=== PATIENT | female | born 1935 | race Caucasian/White ===

== ENCOUNTER 2024-09-25 19:18 | Inpatient (IN) | payer MEDICARE, SELFPAY ==
[2024-09-25] VITALS (7 sets, daily range): BP systolic 123–133; BP diastolic 70–85; PULSE 102–115; RESP 24–80; TEMP 36.4–36.6; O2SAT 79–100; BMI 17.0
--- NOTE | 2024-09-25 19:32 | XR_ITS ---
Examination: AP chest single view Technique one AP portable upright chest single view Exam date and time: September 25, 20242011 hrs. Comparison September 10, 2024 Indications: Shortness of breath today. Findings: Significant left parietal left basilar pneumonia Accentuation of bronchovascular markings Normal heart size Deviation of the trachea to the right related to enlarged left thyroid lobe Prominent osteopenia Impression: Significant left perihilar left basilar pneumonia
--- NOTE | 2024-09-25 19:32 | EDNOTE_ITS ---
ED General RME/HPI General Chief complaint: Shortness of Breath/Dyspnea Stated complaint: SOB Time Seen by Provider: 09/25/24 19:31 Arrival date/time: 09/25/24 19:18 CC: Low oxygen saturations HPI patient presents the ER via EMS from assisted care facilities [facility] where the patient is a DNR on comfort care only the daughter at bedside stated she wanted the patient brought here for assessment for if there is anything we can possibly do for her . Reported the patient has not been able to get an oxygen saturation greater than 81 to 85% on 15 L simple facemask. EMS also report the same that she is tachycardic but with a stable blood pressure. Paperwork from [facility] shows the patient has metabolic encephalopathy and she has a DNR on comfort focused treatment. Reported baseline is some interaction with people. Son who is power of deputy prosecuting attorney per his, arrives at bedside states I want her to be comfortable and not suffocate . Related Data Home Medications ?Medication ?Instructions ?Recorded ?Confirmed lisinopril 2.5 mg tablet 2.5 mg PO PRN PRN htn 09/10/24 09/10/24 Allergies Allergy/AdvReac Type Severity Reaction Status Date / Time Penicillins Allergy Unknown Rash Verified 12/15/21 18:13 Review of Systems Review of Systems ROS Unobtainable: unobtainable due to mental status Past Medical History Past Medical History CARDIAC: Positive Cardiac Disorders, Congestive Heart Failure, Valvular Heart Disease and Hypertension RESPIRATORY: Negative Chronic Obstructive Pulmonary Disease (COPD) or Asthma GENITOURINARY: Positive Renal Disease ENDOCRINE: Negative Diabetes Mellitus Type 1 or Diabetes Mellitus Type 2 HEMATOLOGIC: Negative Sickle Cell Disease Social History SMOKING STATUS: Never smoker SUBSTANCE USE: does not use ED Exam Narrative Physical exam: [General: Frail deconditioned Head normocephalic HEENT: Within acceptable limits Neck is supple nontender Chest equal chest rise nontender to palpation Respiratory: Tachypnea, right sided end expiratory crackles left side clear to auscultation CV: Rate rhythm is regular no murmurs rubs or clicks Abdomen is distended secondary to body habitus soft nontender no masses positive bowel sounds all 4 quadrants Back: No CVA tenderness no spinous process tenderness from cervical spine thoracic and lumbar spine Skin: Intact no petechiae rash induration ulceration or crepitus Extremities: Moving all extremity against resistance cap refill less than 2 seconds neurosensory intact Neuro: Awake alert oriented x3 Glascow coma 15 no focal deficits] Course Course Course Narrative: Chest x-ray shows no profound pneumonia, the patient has a wet nonmobilized co ugh. Patient's condition including a negative influenza and COVID along with a chest x-ray was discussed with the son, who states he wants a morphine drip to make his mother comfortable . Patient's case discussed with Dr. Messina, attending, who states we can start the morphine drip here, if the patient has not within 2 hours of the drip started, they will accept the patient for admission. This was discussed with the son at bedside who is agreeable with this plan. Patient was deep suctioned for moderate amount of upper airway secretions, which improved oxygen saturations. Patient continues to maintain poor inspiratory effort At 2300 the patient continues to maintain oxygen saturations of 9091% on the morphine drip. Patient's family at bedside son was informed that the patient has pneumonia and declined antibiotics stating he just wanted her to be made comfortable . Patient's case again discussed with Dr. Messina who agrees to accept the patient for admission Quality Measures none Orders Category Date Time Status Bedside COVID-19 Antigen Test NOW Care 09/25/24 19:32 Active Bedside Influenza A&B Antigen Test NOW Care 09/25/24 19:32 Completed Insert IV NOW Care 09/25/24 20:37 Active Oronasopharyngeal suction PRN Care 09/25/24 20:22 Active XR chest 1V Stat Exams 09/25/24 19:32 Completed Morphine IV Drip 100mg/100ml [Morphine Sulfate IV Drip Med 09/25/24 20:29 Discontinued 100mg/100ml] 100 ml IV Q50H Morphine Sulfate HORTICULTURAL WORKER Med 09/25/24 21:15 Discontinued See Protocol HORTICULTURAL WORKER PER ORDER Morphine Sulfate HORTICULTURAL WORKER Med 09/25/24 21:34 Active See Protocol HORTICULTURAL WORKER PER ORDER Morphine Sulfate HORTICULTURAL WORKER Med 09/25/24 21:18 Discontinued 30 mg in 30 ml .ROUTE .STK-MED Vital Signs Vital signs: Vital Signs Pulse Rate 115 H 09/25/24 19:24 Respiratory Rate 24 H 09/25/24 19:24 Blood Pressure 133/80 H 09/25/24 19:24 Pulse Oximetry (%) 79 L 09/25/24 19:24 Oxygen Delivery Method Oxy Mask 09/25/24 19:24 MDM Patient data External records reviewed:: [facility] previous records and EMS form Clinical information provided by:: patient and EMS Social determinants that could affect healthcare access:: none Patient has the following chronic illnesses:: Metabolic encephalopathy congestive heart failure CKD recurrent UTIs DNR comfort care How is presenting disease/condition affected by chronic disease/condition?: exacerbated by Evaluation data The following diagnostics were reviewed and interpreted by me:: lab results and radiology exam(s) Lab and/or radiology exams considered but not ordered:: Chest x-ray as interpreted by radiology shows left base pneumonia COVID influenza are negative Interpretation Summary: Discussed the pneumonia with the son who declines antibiotics based on her wishes for DNR DNI comfort care only. Medications Medications considered but not ordered:: None Medication administrations:: Medication Administration History Morphine Sulfate (Morphine Sulf 1 Mg/Ml Practice Representative Syringe 30 Ml) 0 mg HORTICULTURAL WORKER PER ORDER [facility]; Protocol Stop: 09/30/24 21:14 Last Admin: 09/25/24 21:49 Dose: 30 mg Documented By: XIAO Co-signed By: Discontinued Medications Morphine Sulfate (Morphine Sulfate Iv Drip 100mg/100ml) 100 mls @ 2 mls/hr IV Q50H PRN; Protocol PRN Reason: PAIN (COMFORT CARE) Stop: 09/30/24 20:28 Morphine Sulfate (Morphine Sulfate Practice Representative) Confirm Administered Dose 30 mg in 30 mls @ ud .ROUTE .STK-MED ONE Stop: 09/25/24 21:19 Last Admin: 09/25/24 21:26 Dose: Not Given Documented By: XIAO Non-Admin Reason: Duplicate Medication on eMAR Morphine Sulfate (Morphine Sulf 1 Mg/Ml Practice Representative Syringe 30 Ml) 0 mg HORTICULTURAL WORKER PER ORDER [facility]; Protocol Stop: 09/30/24 21:14 Last Admin: 09/25/24 21:51 Dose: Not Given Documented By: XIAO Non-Admin Reason: Duplicate Medication on eMAR None Consultations Consultation(s) initiated? (list below): No Diagnosis Differential Diagnosis ED Complaint MDM: Pneumonia hypoxemia sepsis Most likely diagnosis given after review of the tests above:: Pneumonia hypoxemia Admission Indicated Admission indicated?: indicated Explain why admission is indicated or not indicated:: Morphine drip end-of-life care Admission Request Was there a request for admission?: No Disposition Plan Disposition Plan: Admit Medical Decision Making Differential Diagnosis Differential Diagnosis: Pneumonia hypoxemia sepsis Discharge Plan Plan Patient Disposition: Other Care w/in Hosp (SDC/ESTHER) Disposition Comment: Declining Prescriptions/Referrals Prescriptions/Med Rec: No Action lisinopril 2.5 MG tablet 2.5 mg PO PRN PRN (Reason: htn) Referrals: Torsten (PCP)Michael MD [Primary Care Provider] - In 1 week Problem List Clinical Impression: Shortness of breath Patient/Caregiver Discharge Instructions Print Language: Yakut Stand Alone Forms: Ava Award Info., Patient Portal Info Letter PA/SKILLS TRAINER Supervising Physician PA/SKILLS TRAINER Supervising Physician: Delmar Anders ENP
--- NOTE | 2024-09-25 20:10 | PC.NURSE ---
Assume care for this 89 year old female who was BIB EMS from [facility] with chief c/o of SOB and low SP02 in the 70's. This Pt is a DNR and on comfort care. Pt SP02 at the SNF was in the 80% to 70% and that nursing staff there were unable to maintain the Pt oxygen saturation above 80%. Family at bedside reports that they only want to keep this Pt comfortable and for her to be pain free. On assessment the there crackles on auscultation to the right side of the chest with a SPO2 at 90% on oxymask at 15l. Pt is a GCS of 7. Family at bedside given update on plan of care.
[2024-09-25] MEDS: MORPHINE SULF 1 MG/ML PCA SYRINGE 30 ML PCA (21:49)
[2024-09-26] VITALS (17 sets, daily range): BP systolic 64–123; BP diastolic 42–74; PULSE 96–120; RESP 8–33; TEMP 36.3–37.1; O2SAT 80–97; BMI 17.0
--- NOTE | 2024-09-26 00:15 | ESHP_ITS ---
Documentation for date of: 09/26/24 HPI History of Present Illness History of present illness: The patient is an 89-year-old female with a past medical history significant for hypertension, chronic kidney disease stage III, a history of failure to thrive, dysphagia, and generalized weakness. She presented from [facility] of per note with comfort measures only. The patient is a DNR. The patient was brought to the emergency department by her daughter for evaluation of her hypoxia and SOB. . According to the ED sign-out, the patient has been unable to achieve an oxygen saturation greater than 81-85% on a 15 L oxygen mask. EMS also reported that the patient was tachycardic. Paperwork from [facility] indicated that the patient has metabolic encephalopathy and a DNR order, with a comfort-focused treatment plan. The patient's son, who holds power of life skills coach, was at the bedside and expressed his desire for comfort care, specifically requesting that his mother not suffer or suffocate. Previous Hospitalization: The patient was recently admitted to the hospital, with the most recent discharge date being 09/16/2024. During the previous hospitalization, the patient's mental status was deteriorating, and she was becoming progressively lethargic and weak. The patient's son, Alexandru, was in regular contact with the hospitalist team throughout the course of treatment. On 09/16/2024, a goals of care discussion was held with the family, and the prognosis was updated. The family expressed a preference to avoid further interventions such as endoscopy or PEG tube placement and instead expressed interest in pursuing hospice care. At that time, the patient's code status was changed to DNR, and the family made the decision to focus care on comfort rather than procedural interventions. The family subsequently decided to proceed with home hospice care per note. ED Course: Upon arrival in the ED, patient was hypoxic sat 79% on 15L oxy mask, tachicardic and tachipnic. CXR showed PNA . In ED SCOT Castellano had an extensive conversation with the family, including the patient?s daughter and son, Alexandru, who is the decision-maker. CXR findings was discussed with the family. The family expressed their desire to proceed with comfort care measures, no antibiotics, emphasizing that they do not want the patient to suffer or suffocate. they expressed wishes for morphine drip to make her more comfortable. Subsequently a morphine drip was initiated in ED to manage the patient's symptoms. Two hours later, the patient was reassessed, and the hospitalist team was consulted for admission under comfort care protocols. At this time, the patient?s oxygen saturation had improved slightly, reaching 93% on a 10 L nasal cannula while resting in bed while being on morphin drip. The family?s wishes were once again reviewed and confirmed. The family agreed to continue with the current management, focusing on comfort care and respecting the patient's DNR status. They wanted do not to pursue treatment for pneumonia or any other aggressive interventions, including antibiotics, and chose to continue the morphine drip. We thoroughly explained the expected course of the patient's condition, which may extend from hours to days, and clarified the role of hospice care. The family expressed understanding, and their wishes were respected. The patient was admitted to the hospital with the goal of ensuring comfort during her final days. Problem list: #AHRF 2/2PNA #PNA #Failure to thrive #Dysphagia #Left thyromegaly #Generalized weakness #Hypokalemia #Urinary tract infection #Constipation #History of CKD IIIa comfort care measures initiated. Review of Systems Review of Systems ROS Unobtainable: unobtainable due to mental status Exam Vital Signs Temp Pulse Resp BP Pulse Ox O2 Del Method O2 Flow Rate 97.8 F 102 H 25 H 131/70 H 98 Oxy Mask 10 09/25/24 21:01 09/25/24 22:00 09/25/24 22:00 09/25/24 22:00 09/25/24 22:00 09/25/24 22:00 09/25/24 22:00 Narrative Exam GENERAL: comfortable in bed, under morphine drip, AAO x0, frail female HEENT: Head AT/ NC. Mucous membranes moist. CARDIOVASCULAR: RRR.No pitting edema of bilateral LEs. RESPIRATORY: coarse rhonchi, on 10 L oxymask sat 95% GASTROINTESTINAL: Abdomen soft, non tender no palpable masses. MUSCULOSKELETAL:? No cyanosis or edema, no visible joint swelling. NEUROLOGICAL:unobtainable due to mental status Quality Measures Quality Measures none Advance care planning discussed with:: child and legal surragate Medications Home Medications and Allergies Home Medications ?Medication ?Instructions ?Recorded ?Confirmed ?Type lisinopril 2.5 mg tablet 2.5 mg PO PRN PRN htn 09/10/24 09/10/24 History Allergies Allergy/AdvReac Type Severity Reaction Status Date / Time Penicillins Allergy Unknown Rash Verified 12/15/21 18:13 Visit Medications Acetaminophen (Acetaminophen Supp 650 Mg Supp) 650 mg MD Q6HR PRN PRN Reason: [id number] Stop: 10/25/24 23:50 Artificial Tears (Artificial Tears 225 Drop/15 Ml Btl) 1 drop BOTH EYES Q4HR PRN PRN Reason: Dry eyes Stop: 10/25/24 23:50 Diphenhydramine HCl (Diphenhydramine Inj 50 Mg/Ml Vial) 25 mg IVP Q6HR PRN PRN Reason: ITCHING Stop: 10/25/24 23:50 Lorazepam (Lorazepam 2 Mg/Ml Vial) 1 mg IVP Q6HR PRN PRN Reason: ANXIETY Stop: 09/30/24 23:50 Morphine Sulfate (Morphine Sulf 1 Mg/Ml Mortgage Loan Computation Clerk Syringe 30 Ml) 0 mg HOME CARE LIAISON PER ORDER [facility]; Protocol Stop: 09/30/24 21:14 Last Admin: 09/25/24 21:49 Dose: 30 mg Morphine Sulfate (Morphine Sulf Inj 10 Mg/Ml Vial) 2 mg IVP Q30M PRN PRN Reason: PAIN Stop: 09/30/24 23:50 Ondansetron HCl (Ondansetron Inj 2 Mg/Ml Inj 2 Ml) 4 mg IV Q6H PRN; Protocol PRN Reason: NAUSEA OR VOMITING Stop: 10/25/24 23:50 Scopolamine (Scopolamine 1 Mg Tdsy) 1 mg TOP Q3D SULEMA Stop: 10/25/24 23:44 Sennosides (Senna Tablet) 2 tab PO HS SULEMA Stop: 10/26/24 20:59 Discontinued Medications Morphine Sulfate (Morphine Sulfate Iv Drip 100mg/100ml) 100 mls @ 2 mls/hr IV Q50H PRN; Protocol PRN Reason: PAIN (COMFORT CARE) Stop: 09/30/24 20:28 Morphine Sulfate (Morphine Sulf 1 Mg/Ml Mortgage Loan Computation Clerk Syringe 30 Ml) 0 mg HOME CARE LIAISON PER ORDER [facility]; Protocol Stop: 09/30/24 21:14 Last Admin: 09/25/24 21:51 Dose: Not Given Assessment & Plan Plan 89-year-old female with past medical history of hypertension, chronic kidney disease stage III, history of failure to thrive, dysphagia, generalized weakness, was admitted to the hospital for comfort care. Problem list: #AHRF 2/2PNA #PNA #Failure to thrive #Dysphagia #Left thyromegaly #Generalized weakness #Hypokalemia #Urinary tract infection #Constipation #History of CKD IIIa comfort care measures initiated. Disposition:Medsurge DVT prophylaxis: none GI prophylaxis: none Diet: npo Lines: PIV CODE STATUS:DNR Patient care was discussed with attending physician Dr. Siddharth Cardozo MD PGY-2 I have carefully reviewed this document. Due to imperfections in the voice software, there could be grammatical errors including phonetic/typographic errors. This in no way compromises the medical care the patient is receiving Attending Provider Attestation/Addendum I reviewed labs, imaging, EKG, home medications and prior available records. Face to face evaluation was performed by me. I have personally examined the patient and discussed assessment and plan with the IM team. I reviewed the resident note and agree with the plan with exceptions as below. Patient is an 89-year-old female with history of CHF and recent admission for failure to thrive and BALTAZAR who presented with a chief complaint of shortness of breath. She was found to have acute hypoxic respiratory failure in the setting of left-sided pneumonia. Acute hypoxic respiratory failure: In the setting of left-sided pneumonia. Possible component of CHF. Discussed goals of care with the family: Since the patient was on hospice care and she is symptomatic, will admit for morphine drip and inpatient hospice referral. Will continue oxygen as needed for comfort but no antibiotics or invasive measures as per family. Hospice referral to be made in the morning. Goals of care discussion/counseling: She is on comfort care measures which was initiated in the ED.
[2024-09-26] MEDS: SCOPOLAMINE 1 MG TDSY TOP (00:21)
--- NOTE | 2024-09-26 08:45 | PC.NURSE ---
Patient lying in gurney in semifowler's position, resp. even and slightly labored at 22bpm, patient admitted to hospital for comfort care, patient sons at bedside and updated on patients condition, they have no further questions at this time.
--- NOTE | 2024-09-26 09:30 | CHAP ---
Family member was with patient. Patient was asleep. I had prayer and gave words of comfort.
--- NOTE | 2024-09-26 10:52 | ESPR_ITS ---
<Statement entered by Mack Pickett MD - 09/26/24 16:50> Senior Resident Attestation: I supervised/discussed management plan with grad intern physician Dr. Daily, and was involved in the care of this patient. I personally saw and examined the patient and discussed the assessment and plan with the entire medicine team, including my attending. I agree with the assessment and plan as documented. Patient was seen and examined at the bedside in ED. Her relatives are at the bedside. Patient appears comfortable on morphine drip and oxygen via facemask. Her BP is low but stable. Patient's care was discussed with attending physician, Dr. Curran. Mack Pickett MD PGY-2. Documentation for date of: 09/26/24 Subjective Subjective Interval history: 09/26: This morning Pt. is radha tachycardic (HR 112) and hypotensive (82/53). Pt. is placed on morphine drip as per comfort measures. Pt's family is at bedside. Pt appears comfortable resting. Exam Vital Signs Temp Pulse Resp BP Pulse Ox O2 Del Method O2 Flow Rate 98.3 F 108 H 16 95/57 L 91 L Oxy Mask 15 09/26/24 08:27 09/26/24 09:00 09/26/24 09:00 09/26/24 09:00 09/26/24 09:00 09/26/24 09:00 09/26/24 09:00 Narrative Exam GENERAL: A&Ox0. Not in acute distress, laboured breathing NEURO: comatose, non verble, non responsive HEENT: Atraumatic, Normocephalic. mucous membranes dry. Eyes closed HEART:tachycardic LUNGS: crackles ABDOMEN: soft, non-distended SKIN: multiple skin changes consistent with dry skin, age spots some bruising due to skin thinning EXTREMITIES: No edema noted Quality Measures Quality Measures none Advance care planning discussed with:: child Assessment & Plan Assessment Current Active Medications: Generic Name Dose Route Start Last Admin Trade Name Freq PRN Reason Stop Dose Admin Acetaminophen 650 mg 09/25/24 23:51 Acetaminophen Supp 650 Mg Supp LA 10/25/24 23:50 Q6HR PRN [id number] Artificial Tears 1 drop 09/25/24 23:51 Artificial Tears 225 Drop/15 Ml Btl BOTH EYES 10/25/24 23:50 Q4HR PRN Dry eyes Diphenhydramine HCl 25 mg 09/25/24 23:51 Diphenhydramine Inj 50 Mg/Ml Vial IVP 10/25/24 23:50 Q6HR PRN ITCHING Lorazepam 1 mg 09/25/24 23:51 Lorazepam 2 Mg/Ml Vial IVP 09/30/24 23:50 Q6HR PRN ANXIETY Morphine Sulfate 0 mg 09/25/24 21:34 09/25/24 21:49 Morphine Sulf 1 Mg/Ml Limnologist Syringe 30 Ml PADDER 09/30/24 21:14 30 mg PER ORDER SULEMA Administration Protocol Morphine Sulfate 2 mg 09/25/24 23:51 Morphine Sulf Inj 10 Mg/Ml Vial IVP 09/30/24 23:50 Q30M PRN PAIN Ondansetron HCl 4 mg 09/25/24 23:51 Ondansetron Inj 2 Mg/Ml Inj 2 Ml IV 10/25/24 23:50 Q6H PRN NAUSEA OR VOMITING Protocol Scopolamine 1 mg 09/25/24 23:45 09/26/24 00:21 Scopolamine 1 Mg Tdsy TOP 10/25/24 23:44 1 mg Q3D SULEMA Administration Sennosides 2 tab 09/26/24 21:00 Senna Tablet PO 10/26/24 20:59 HS SULEMA Plan Ms. Beasley is an 89-year-old female with a past medical history of hypertension, congestive heart failure, and chronic kidney disease presents a history of failure to thrive, dysphagia, and generalized weakness. She presented from [facility] for evaluation of her hypoxia and SOB. On admission pt. O2 saturation were between 81-85% on 15L oxygen with tachycardia. This morning Pt.is radha tachycardic .Pt. is placed on morphine drip as per comfort measures. Family is agreeable and does not want antibiotics. As per chart review, the pt's son Alexandru has the power of regulatory attorney expressed his desire for comfort care, specifically requesting that his mother not suffer or suffocate. Plan: Continue with comfort measures as per family's wishes. Problem list: #AHRF 2/2PNA #PNA #Failure to thrive #Dysphagia #Left thyromegaly #Generalized weakness #Hypokalemia #Urinary tract infection #Constipation #History of CKD IIIa Assessment and plan discussed with my senior resident Dr. Pickett & attending physician Dr. Bina Daily (PGY-1)- Internal medicine resident Attending Provider Attestation/Addendum I, Brenda Curran DO, attest that I was physically present for the perez portions of the service and evaluated the patient with the resident and I reviewed and discussed the case with the resident and agree with the resident's findings and plans of care as documented above Patient seen and eval this a.m. Son is at bedside. Patient remains on morphine drip and appears comfortable. Continue with comfort measures at this time. All questions and concerns were addressed to family satisfaction at bedside.
--- NOTE | 2024-09-26 11:34 | PC.NURSE ---
Family at bedside and is aware patient declining 02 sats 86% on 15L oxymask and bp 72/60. Continuing comfort measures,
--- NOTE | 2024-09-26 12:05 | PC.OT ---
Dr. Pickett, made aware of patient vs declining, family aware as well.
--- NOTE | 2024-09-26 12:10 | PC.NURSE ---
Dr. Lake made aware, vs declining, family at bedside and is aware.
--- NOTE | 2024-09-26 12:37 | PC.NURSE ---
Called Dara, pharmacist informed him Morphine LAUNDRY SORTER Syringe complete, CLEM Layton from ICU will slate picker and administer to patient.
[2024-09-26] MEDS: MORPHINE SULF 1 MG/ML PCA SYRINGE 30 ML PCA (12:58)
--- NOTE | 2024-09-26 13:01 | PC.NURSE ---
Family at bedside, 02 sats 86% on 15l oxymas, bp 72/60.
--- NOTE | 2024-09-26 14:51 | PC.NURSE ---
patient 02 sats 81% family at bedside
--- NOTE | 2024-09-27 00:37 | PD.DPN ---
Documentation for date of: 09/27/24 Pronouncement Note Date and Time of Date of : 09/27/24 Time of : 00:32 PCOD Preliminary cause of : Cardiopulmonary arrest Summary Additional details: I was called to patient's bedside to pronounce that Naty Beasley, 89-year-old female, has . No spontaneous movements present. No response to verbal or tactile stimuli. Pupils mid-dilated, fixed, and unresponsive to light. Corneal reflex absent. No breath sounds appreciated over either lung james. No heart sounds auscultated over entire precordium. Patient pronounced at 12:32 AM on 09/27/2024. Confirmed and witnessed by nurse. Family was notified and condolences were given. Additional Data Confirmation of : no pulse, no respirations, no heart sounds, pupils fixed and dilated and other (No response to pain, no corneal reflex.) Family: at bedside Additional persons at bedside: other (Nurse) Attending/PCP notified?: Yes Attending physician: rBenda Curran, DO Was code activated?: No (Comfort care)
--- NOTE | 2024-09-27 00:50 | PC.NURSE ---
at 0016, receive a call from family notified staff that they assume patient has . Upon entering room, patient has no respirations, not responding to any stimuli. Called Dr. Jules Walter at 0019 to assess patient. At 0025, No pulse and BP detected. Dr. Jules Walter and Dr. Cardozo saw and assessed that patient at bedside. Called time of at [address] Aleksandr Walter.
--- NOTE | 2024-09-27 02:49 | PC.NURSE ---
Mortuary staff on floor to roller picker patient at 0214, left facility at 0225.
--- NOTE | 2024-09-27 11:11 | PD.DDS ---
Documentation for date of: 09/27/24 Summary Date and Time Date of admission: 09/25/24 23:52 Ms. Naty Beasley is an 89-year-old female with past medical history significant for hypertension, chronic kidney disease, dysphagia, enlarged thyroid, failure to thrive and generalized weakness presented to [facility] ED on 09/25/2024 from [facility] for comfort measures protocol. The patient was brought to the ED by her daughter for evaluation of her hypoxia and SOB, as per the patient's daughter and son Alexandru who has the power of family law attorney wishes for their mother not to suffer or suffocate. In the ED patient was unable to achieve oxygen saturations greater than 85% on 15 L of oxygen via oxy-mask. Patient had a DNR/DNI order with comfort focused treatment plan only. Patient was also tachycardic and tachypneic without improvement of oxygen saturation. chest x-ray showed significant left perihilar and left basilar pneumonia, CXR findings was discussed with the family. The family expressed their desire to proceed with comfort care measures, no antibiotics, emphasizing that they do not want the patient to suffer or suffocate. they expressed wishes for morphine drip to make her more comfortable. Subsequently a morphine drip was initiated in the ED to manage the patient's symptoms. The patient was admitted to the hospital with the goal of ensuring comfort during her final days, with continuing morphine drip and no other aggressive measures or antibiotic treatments. Over the course of her hospitalization patient's oxygen saturations continued to worsen, overnight team reported patient passed peacefully at 12:32 AM on 09/27/2024 confirmed and witnessed by nurse in the room. Patient's family was notified and condolences were given. End-of-life care was provided with focus on symptoms management, pain control and emotional support with family at bedside. The patient received morphine drip and oxygen via nasal cannula to ensure comfort. #comfort care #AHRF 2/2PNA #PNA #Failure to thrive #Dysphagia #Left thyromegaly #Generalized weakness #Hypokalemia #Urinary tract infection #Constipation #History of CKD IIIa Assessment and plan discussed with attending physician Dr. Bina Daily (PGY-1)- Internal medicine resident Additional Data Attending physician: Brenda uCrran, Visit Providers Provider Primary care physician: Matt Ryan MD Consults: 09/25/24 23:56 Referral Hospice Urgent Comment: Referral Registered Dietitian Urgent Comment: Discharge Plan Plan Patient Disposition: Disposition Comment: Declining Prescriptions/Referrals Referrals: Matt Ryan MD [Primary Care Provider] - Patient/Caregiver Discharge Instructions Print Language: Angolan Discharge Order Discharge Orders: Discharge (Routine); Ordered 09/27/24 Ordered By: Aleksandr Walter
== END 2024-09-27 00:32 | disposition expired | DRG 951 ==
LOC: SERX 23:08 → SERHOLD 09-26 00:13 → S3SX 09-26 17:32
PROVIDERS: Admitting Provider Student in an Organized Health Care Education/Training Program; Emergency Provider Emergency Medicine; PCP Hospitalist; Visit Provider Internal Medicine
DX: Z51.5 Encounter for palliative care (principal); J96.01 Acute respiratory failure with hypoxia; G93.41 Metabolic encephalopathy; J18.9 Pneumonia, unspecified organism; I13.0 Hypertensive heart and chronic kidney disease with heart failure and stage 1 through stage 4 chronic kidney disease, or unspecified chronic kidney disease; N39.0 Urinary tract infection, site not specified; Z66 Do not resuscitate; N18.31 Chronic kidney disease, stage 3a; I50.9 Heart failure, unspecified; R13.10 Dysphagia, unspecified; I46.9 Cardiac arrest, cause unspecified; E87.6 Hypokalemia; R62.7 Adult failure to thrive; K59.00 Constipation, unspecified; E01.0 Iodine-deficiency related diffuse (endemic) goiter
CPT/HCPCS: 71045; 87400; 87811; 96374; 99285; J2270; A9270